=== PATIENT | female | born 1960 | race Caucasian/White ===

== ENCOUNTER 2025-09-01 09:59 | Outpatient (OUT) | payer OTHER, SELFPAY ==
--- NOTE | 2025-09-01 10:02 | MM_ITS ---
Patient Name: NANCY LOZOYA MR#: [id number] : 1960 Exam Date: 09/01/2025 Ordering Doctor: JOE MORALES RADIOLOGY REPORT PROCEDURE: MM TOMOSYNTHESIS SCREENING BI COMPARISON: MAMMO ROBB SCREEN, 09/02/2024. MM TOMOSYNTHESIS SCREENING BI, 09/18/2023. MAMMO ROBB SCREEN, 09/16/2022. MAMMO ROBB SCREEN, 09/10/2021. INDICATIONS: Screening Calculator Name NCI Breast Cancer Risk Assessment Tool 5 Year Breast Cancer Risk 2.20% Lifetime Breast Cancer Risk 8.90% Personal Breast Cancer No Personal Ovarian Cancer No Treatments None Family Cancers None LOCATION: [facility] BREAST COMPOSITION: There are scattered areas of fibroglandular density. FINDINGS: DIAGNOSTIC CATEGORY 1--NEGATIVE. RIGHT BREAST: No significant suspicious finding. LEFT BREAST: No significant suspicious finding. RECOMMENDATIONS: ROUTINE MAMMOGRAM AND CLINICAL EVALUATION IN 12 MONTHS. Dictated by: Primo Duong DO on 09/04/2025 at 09:22 Approved by: Primo Duong DO on 09/04/2025 at 09:23
--- OUTSIDE RECORDS SUMMARY | 2025-09-01 10:02 | XMS_ITS | Clinical Summary ---
Author Organization [facility] Address [facility] [id number] [address] [place] [address] Care Team Providers Care Rn Gyn Name Role Phone Maricarmen Urban Primary Care Provid er Allergies Active AllergyReactionsCriticalityNoted DateCommentsSulfa (Sulfonamide Antibiotics)11/26/2018 Medications MedicationSigDispense QuantityRefillsLast FilledStart DateEnd DateStatus erythromycin (ILOTYCIN) ophthalmic ointment Active Active Problems ProblemNoted DateDiagnosed DateSOB (shortness of breath)12/02/2018Chest pressure 12/02/2018Abnormal stress test12/02/2018 Family History Medical HistoryRelationNameCommentsStrokeFatherRelationNameStatusCommentsFather Social History Tobacco UseTypesPacks/DayYears UsedDateSmoking Tobacco: NeverSmokeless Tobacco: NeverAlcohol UseStandard Drinks/WeekCommentsYes0 (1 standard drink = 0.6 oz pure alcohol)ChildcareAnswerDate AxpkvvwoAzumnhtwlGrddzcg23/13/2019EmploymentAnswer Date BstwfggcOelrwmtopbDkasqql05/13/2019Purpose - LifeAnswerDate RecordedPurpose and direction in eoibDcyaula52/11/2021CommentsUnknownSex and Gender InformationValueDate RecordedSex Assigned at BirthNot on fileLegal SexFemale 08/11/2018 12:14 PM EDTGender IdentityNot on fileSexual OrientationNot on file Last Filed Vital Signs Vital SignReadingTime TakenCommentsBlood Ppewimpd908/60012/02/2018 2:35 PM EST Wnzfk7422/ 2:35 PM ESTTemperature--Respiratory Rate--Oxygen Nkdvhrrjrg31% 12/02/2018 2:35 PM ESTInhaled Oxygen Concentration--Gyarmx10.1 kg (128 lb) 12/02/2018 2:35 PM PLMVtewfr263.6 cm (5' 6 )12/02/2018 2:35 PM ESTBody Mass Index20.66012/02/2018 2:35 PM EST Plan of Treatment Health MaintenanceDue DateLast DoneCommentsDepression Hycpbbacg40/24/1973Tobacco Thpwsfhvi89/24/1973Adult BMI Aykbexzmd12/24/1979DTaP,Tdap and Td Vaccines (1 - Tdap)01/03/1980Pap Smear1982Zoster (Shingles) Vaccine (1 of 2)2011 Influenza Uqgdfuo2606/12/2025RSV ( or age 60+ yrs) (1 - 1-dose 75+ series) 01/03/2036 Medical Devices Not on file Insurance * Guarantor: Elly Lozoya TypeRelation to PatientDate of BirthPhone Billing AddressPersonal/UzninrRdwq1960 [address] [phone] Care Teams Team MemberRelationshipSpecialtyStart DateEnd Date Maricarmen Urban APRN-[place] [address] [phone] PCP - Jilreti90/31/18
--- OUTSIDE RECORDS SUMMARY | 2025-09-01 10:02 | XMS_ITS | Clinical Summary ---
Author Organization [facility] Address [address] [place] [address] Phone Care Team Providers Care Stenocaptioner Name Role Phone Raymond Becker DO Primary Care Provider Kayli Braga APRN-ARTIFICIAL FOLIAGE ARRANGER Unavailable Unavailable Allergies Active AllergyReactionsCriticalityNoted DateCommentsSulfa (Sulfonamide Antibiotics)Kaqvkqf9706/10/2023 Medications MedicationSigDispense QuantityRefillsLast FilledStart DateEnd DateStatus CALCIUM ORAL TABSActive docosahexaenoic acid/epa (FISH OIL ORAL) CAPSActive DAILY MULTI-VITAMIN ORAL TABSActive Lactobacillus acidophilus (PROBIOTIC ORAL) CAPSActive NON FORMULARY Vitamin D CAPSActive alprazolam (XANAX ORAL) if needed. TABSActive MAGNESIUM GLYCINATE ORAL Take 1 tablet by mouth once daily.Active dilTIAZem (Cardizem) 30 mg immediate release tablet Indications:PalpitationsTake one tablet twice a day as needed for palpitations lasting 10 minutes or longer 120 tablet ctive Active Problems ProblemNoted DateDiagnosed ChwmYqqiaxf98/30/2023asping for ukzfwl7806/10/2023 Dhatxkrb71/30/2023Moderate obstructive sleep apnea06/10/2023alpitations 06/10/2023SVT (paroxysmal supraventricular tachycardia)06/10/2023 Immunizations ImmunizationAdministration DatesNext DueFlu vaccine, quadrivalent, recombinant, preservative free, adult (FLUBLOK)08/15/2022,08/10/2021,06/28/2020Influenza, injectable, bnnokywodyzs21/31/2019,08/19/2018Influenza, seasonal, injectable 09/18/2015Zoster vaccine, recombinant, adult (SHINGRIX)07/28/2020 Family History Medical HistoryRelationNameCommentsHeart failureFatherLupusMotherOsteoporosis MotherBreast cancerSisterHypertensionSisterRelationNameStatusCommentsFather MotherSister Social History Tobacco UseTypesPacks/DayYears UsedDateSmoking Tobacco: NeverSmokeless Tobacco: Never Tobacco Cessation:Counseling Given: No Alcohol UseStandard Drinks/WeekCommentsNot Currently0 (1 standard drink = 0.6 oz pure alcohol)CommentsUnknownSex and Gender InformationValueDate Recorded Sex Assigned at BirthNot on fileLegal MwsVismrf73/25/2022 4:27 PM ESTGender IdentityNot on fileSexual OrientationNot on file Last Filed Vital Signs Vital SignReadingTime TakenCommentsBlood Fdmivznf391/7010 10:06 AM EDT Zazob0198 10:06 AM WYLPxedtghufsm83.5 ??C (97.7 ??F)01/12/2023 12:26 PM EDTRespiratory Rate--Oxygen Saturation--Inhaled Oxygen Concentration--Iayhvw54.1 kg (128 lb)08/07/2023 10:06 AM HNFHkitgo481.1 cm (5' 5 )08/07/2023 10:06 AM EDT Body Mass Index21.310 10:06 AM EDT Plan of Treatment Health MaintenanceDue DateLast DoneCommentsCT Lkylwjgzuvli1961Colonoscopy 1961FIT1961HIV Ltzedvvyb1961Lipid Panel1Sigmoidoscopy 1960Yearly Adult Jfkpvacc1960MMR Vaccines (1 of 1 - Standard series) 2Diabetes Movrlqwlt53/24/1979Hepatitis C Ezicwkdwv07/24/1979 Pneumococcal Vaccine (1 of 2 - PCV)01/03/1980Cervical Cancer Wgomayvmh78/24/1982 HPV/Mjgpix2301/02/1982Pap Smear1982DTaP/Tdap/Td Vaccines (1 - Tdap) 1983RSV High Risk: (Elderly (60+) or Population) (1 - Risk 50-74 years 1-dose series)2011Zoster Vaccines (2 of 2) Plgynmoiw09/06/806664/03/2022, 09/10/2021, 09/05/2020Influenza Vaccine (#1) 511/01/2022, 08/10/2021, 06/28/2020, Additional history existsCOVID-19 Vaccine ( season)/, 2021olorectal Cancer Ojbkvhelt78/25/2028FIT-DNA (Cologuard)8006/05/2025, 08/28/2020Bone Density KwkpNckgvfproppz41/30/2021HIB VaccinesAged OutNo longer eligible based on patient's age to complete this topicHPV VaccinesAged OutNo longer eligible based on patient's age to complete this topicHepatitis A VaccinesAged OutNo longer eligible based on patient's age to complete this topicHepatitis B VaccinesAged OutNo longer eligible based on patient's age to complete this topic IPV VaccinesAged OutNo longer eligible based on patient's age to complete this topicMeningococcal VaccineAged OutNo longer eligible based on patient's age to complete this topicRotavirus VaccinesAged OutNo longer eligible based on patient's age to complete this topic Procedures Procedure NamePriorityDate/TimeAssociated DiagnosisCommentsLAB COLOGUARD?? COLON CANCER UKEJCVSekrovw23/25/2025 8:24 AM EDT Screening for colorectal cancer from Last 3 Months Results * Cologuard?? colon cancer screening (06/05/2025 8:24 AM EDT)ComponentValueRef RangeTest MethodAnalysis TimePerformed AtPathologist SignatureNONINV COLON CA DNA+OCC BLD SCRN STL JVWoxxxaslGygkqxmk59/29/2025 3:42 PM EDTEXSun Animatics (CLIA #:[id number])Comment: The Cologuard (TM) test was performed on this specimen. NEGATIVE TEST RESULT. A negative Cologuard result indicates a low likelihood that a colorectal cancer (CRC) or advanced adenoma (adenomatous polyps with more advanced pre-malignant features) is present. The chance that a person with a negative Cologuard test has a colorectal cancer is less than 1 in 1500 (negative predictive value >99.9%) or has an advanced adenoma is less than 5.3% (negative predictive value 94.7%). These data are based on a prospective cross-sectional study of 10,000 individuals at average risk for colorectal cancer who were screened with both Cologuard and colonoscopy. (Alexandra Sue et al, N Engl J Med 2014;370(14):1703-0979) The normal value (reference range) for this assay is negative. COLOGUARD RE-SCREENING RECOMMENDATION: Periodic colorectal cancer screening is an important part ofpreventive healthcare for asymptomatic individuals at average risk for colorectal cancer. Followinga negative Cologuard result, the [place] [employer] and U.S. Multi-Society Task Force screening guidelines recommend a Cologuard re-screening interval of 3 years. References: [place] [employer] Guideline for Colorectal Cancer Screening: https://www.cancer.or g/cancer/gcrgb-pfdtpy-ibauiq/pisfwtvnr-mwrrxqung-hwzasau/acs-recommendations.htm sascha.; Jose DUBON, Vince MOYER, Pito CardonaK, Colorectal Cancer Screening: Recommendations for Physicians and Patients from the U.S. Multi-Society Task Force on Colorectal Cancer Screening , Am J Gastroenterology 2017; 112:6681-3310. TEST DESCRIPTION: Composite algorithmic analysis of stool DNA-biomarkers with hemoglobin immunoassay. ?? Quantitative values of individual biomarkers are not reportable and are not associated with individual biomarker result reference ranges. Cologuard is intended for colorectal cancer screening ofadults of either sex, 45 years or older, who are at average-risk for colorectal cancer (CRC). Cologuard has been approved for use by the U.S. FDA. The performance of Cologuard was established in a cross sectional study of average-risk adults aged 50-84. Cologuard performance in patients ages 45 to 49 years was estimated by sub-group analysis of near-age groups. Colonoscopies performed for a positive result may find as the most clinically significant lesion: colorectal cancer [4.0%], advanced adenoma (including sessile serrated polyps greater than or equal to 1cm diameter) [20%] or non- advanced adenoma [31%]; or no colorectal neoplasia [45%]. These estimates are derived from a prospective cross-sectional screening study of 10,000 individuals at average risk for colorectal cancer who were screened with both Cologuard and colonoscopy. (Alexandra Molina al, N Engl J Med 2014;370(14):3101-5508.) Cologuard may produce a false negative or false positive result (no colorectal cancer or precancerous polyp present at colonoscopy follow up). A negative Cologuard test result does not guarantee the absence of CRC or advanced adenoma (pre-cancer). The current Cologuard screening interval is every 3 years. ([place] [employer] and U.S. Multi-Society Task Force). Cologuard performance data in a 10,000 patient pivotal study using colonoscopy as the reference method can be accessed at the following location: www.[facility].MedAdherence/results. Additional description of the Cologuard test process, warnings and precautions can be found at www.cologuard.com. Specimen (Source)Anatomical Location / LateralityCollection Method / Volume Collection TimeReceived TimeStool specimen (specimen)Specimen from rectum / Gkfjtcd0406/05/2025 8:24 AM EDT06/06/2025 2:09 PM EDT Narrative Authorizing ProviderResult TypeResult StatusRobert Primo Becker [facility] ORDERABLESFinal ResultPerforming OrganizationAddress City/State/ZIP CodePhone Number [employer] (CLIA #:[id number]) [place] [address], from Last 3 Months Insurance Care Teams Team MemberRelationshipSpecialtyStart DateEnd Date Raymond Becker DO PCP - General12/22/19 Kayli Braga, MULTIMEDIA TECHNICIAN-ARTIFICIAL FOLIAGE ARRANGER Nurse GrsfenzsdxkoVxutfqhisi09/3/23
--- OUTSIDE RECORDS SUMMARY | 2025-09-01 10:02 | XMS_ITS | Clinical Summary ---
Author Organization [facility] Address [address] [place] [address] Care Team Providers Care Waist Fitter Name Role Phone Karla Oneilnilda Merida DPM Unavailable [phone] MuluGlynn barry Zhane DO Unavailable [phone] Uvaldo Rodriguez DO Primary Care Provider [phone] Allergies Active AllergyReactionsCriticalityNoted DateCommentsSulfa AntibioticsAnaphylaxis High11/26/2018 Other Reaction(s): Hives, Hives Hives and throat closes Tokgun4809/09/2023 Other Reaction(s): hives Medications MedicationSigDispense QuantityRefillsLast FilledStart DateEnd DateStatus Probiotic Product (PROBIOTIC ADVANCED PO) ProbioticActive cholecalciferol (Vitamin D-3) 125 MCG (5000 UT) capsule Take 5,000 Units by mouth in the morning.08/25/2022ctive omega-3 (Fish Oil) 1000 MG capsule Take 1,000 mg by mouth 1 (one) time each day at the same time.Active Multiple Vitamin (MULTIVITAMIN ADULT PO) Take by mouth.Active albuterol HFA 90 mcg/act inhaler Indications:Shortness of breathINHALE 2 PUFFS BY MOUTH EVERY 4 TO 6 HOURS NEEDED 18 g ctive DIGESTIVE ENZYMES PO Take by mouthActive estradiol (Estrace) 0.1 MG/GM vaginal cream Indications:Atrophic vaginitisInsert 1 g into the vagina 3 (three) times a week for 30 days, THEN 1 g 2 (two) times a week. 42.5 g 204/21/ctive naltrexone (Depade) 50 MG tablet Indications:Alcohol use disorderTake 1 tablet (50 mg) by mouth Daily Can start off with 1/2 tablet daily if desired to reduce side effects 30 tablet Expired Active Problems ProblemNoted DateDiagnosed DateSpondylosis of lumbar spine08/07/2023sthma 07/28/20230037Wswontuh22/30/2023SVT (paroxysmal supraventricular tachycardia) 06/10/2023Wellness ymyhpxqcrdz18/29/2023 Assessment & Plan (06/09/2023 9:15 AM EDT): Check DE XA. Will need a pap. Followed with Dr. Thomas in the past. Encouraged to schedule. Reviewed colonoscopy in May. Uneaycl8904/16/2023OSA (obstructive sleep apnea)04/16/2023 Assessment & Plan (06/09/2023 9:03 AM EDT): Trial with sleep apnea machine. Continue following with Dr. José. Assessment & Plan (04/16/2023 10:05 AM EDT): Waiting to get machine for CARLENE. Vitamin D /30/2022ge-related osteoporosis without current pathological awkdapuc84/21/2022 Overview (06/09/2023): DEXA osteoporosis Offered bisphosphonate therapy 2019 . No FHx fracture Menopause 51y/o tried ERT/PG patch and had bleeding- underwent work up - negative No secondary etiologies Lopez rods lumbar Referred to [facility] 2021 Assessment & Plan (06/09/2023 9:09 AM EDT): DEXA osteoporosis Offered bisphosphonate therapy 2019 . No FHx fracture Menopause 51y/o tried ERT/PG patch and had bleeding- underwent work up - negative No secondary etiologies Lopez rods lumbar Referred to [facility] 2021. Reports that she is no longer following with Dr. Hall and decided not to complete hormones. Bilateral nanmyzly39/25/6278Ajhpsivovwbpfr89/29/2020 Assessment & Plan (06/16/2025 1:54 PM EDT): Reordered annual labs for chronic underlying medical conditions including hyperlipidemia and postmenopausal state and some hormone labs for patient as she is considering adding testosterone back to [facility] compounded HRT, I am amenable to this as previously she had the testosterone pellets from previous HRT provider and those should be well out of system at this point as those were reportedly placed 1 year ago. I advised her to [facility] to discuss what they might need from her to add that in as I will likely need to sign another order when that time comes Orders: Lipid panel; Future CBC and differential; Future Comprehensive metabolic panel; Future Testosterone, free, total; Future Assessment & Plan (06/09/2023 9:18 AM EDT): CAC of 0 LDL of 160. Encouraged healthy lifestyle and diet. Resolved Problems ProblemNoted DateDiagnosed DateResolved DateNeed for viral immunization sthmatic bronchitis with acute ynteefnvdcan10/18/2023 09/11/2024 Overview (07/29/2023): started 02/2023- smoke exposure [place] 06/2023 - [facility] viral bronchitis - dexamethasone x1 Hubyqwnqifdu22Gasping for pbgurq59ecurrent icgflixii04 Assessment & Plan (06/09/2023 9:17 AM EDT): Stop using OTC natural oils and try AYR nasal gel instead. She requests ENT evaluation as well. Will place referral to ENT for evaluation of this and and abnormal sensations she is having in her throat. Some concern for GERD. Would appreciate Shortness of lcirsm52/10/2023 Assessment & Plan (06/09/2023 9:09 AM EDT): Check PFTS and echo. Improved with inhaled steroids. Sleep apneaHormone replacement therapy (HRT)04/16/2023 04/16/2023ost viral RAD (reactive airway disease)/SVT (supraventricular tachycardia) Assessment & Plan (06/09/2023 9:05 AM EDT): Complete echo recommended by Dr. Francis. She requests that we order this test locally. Assessment & Plan (04/16/2023 10:04 AM EDT): Sees Dr. Francis. She has not been taking the beta blockers she recommended. Fluttering heartostmenopausal bone loss Lumbosacral spondylosis without aymtwmqmeg03 Encounters DateTypeDepartmentCare UewnLgfyzkkvbjo08/13/2025Results Follow-Up [facility] [address], [place] [address] [place] [phone] Uvaldo Rodriguez DO CBC and differential, Comprehensive metabolic panel, Lipid panel, Testosterone, free, total07/21/2025 9:20 AM EDTOffice Visit [facility] [address], [facility] [place] [phone] Uvaldo Rodriguez DO Annual wellness visit (Primary Dx); Vaccine counseling; Alcohol use disorder; DDD (degenerative disc disease), ytcvsobm94/10/2025amboo flowsheet [facility] [address], [address] [place] [address] Uvaldo Rodriguez DO 07/11/2025bstract [facility] [address], [place] [address] Uvaldo Rodriguez DO 07/10/2025bstract [facility] [address], [facility] [place] [address] Uvaldo Rodriguez DO 06/16/2025 8:40 AM EDTProcedure Visit [facility] [address], [address] [place] [address] Uvaldo Rodriguez DO Segmental and somatic dysfunction of abdomen and other regions (Primary Dx); Postmenopausal; Hyperlipidemia, unspecified hyperlipidemia typefrom Last 3 Months Immunizations ImmunizationAdministration DatesNext DueInfluenza Nasal, Jwxnnuhtxlh39/04/2022 Influenza, Tuozngrlbpx38/17/2020Influenza, injectable, czzaosbnzaqi61/31/2019, 08/19/2018,09/12/2014Influenza, injectable, quadrivalent, preservative free 08/21/2023,08/11/2019,08/19/2018Influenza, recombinant, quadrivalent, injectable, preservative free08/15/2022,08/10/2021,06/28/2020Influenza, seasonal, gavxphxxch60/08/2015Zoster, Mmphtgscfgf14/17/2020 Family History Medical HistoryRelationNameCommentsNo Known ProblemsDaughterAlcohol abuseFather JohnArthritisFatherJohnHeart diseaseFatherJohnHyperlipidemiaFatherJohnMental illnessFatherJohnOsteoarthritisFatherJohnAlcohol abuseMotherNancyArthritisMother NancyCOPDMotherNancyEmphysemaMotherNancyLupusMotherNancyMental illnessMother NancyOsteoarthritisMotherNancyOsteoporosisMotherNancyUterine cancerPaternal GrandmotherHeart diseaseSister 1JodyHyperlipidemiaSister 1JodyHypothyroidism Sister 1JodyThyroid diseaseSister 1JodyBreast cancerSister 2BarbCancerSister 2 BarbHeart diseaseSister 2BarbHeart diseaseSister 3Older 3 yrsHyperlipidemia Sister 3Older 3 yrsNo Known ProblemsSonMelanomaNeg HxRelationNameStatusComments DaughterAlive1 daughterFatherJohnDeceasedMotherNancyDeceasedPaternal Grandmother Sister 1JodySister 2BarbSister 3Older 3 yrsSonAlive1 son Social History Tobacco UseTypesPacks/DayYears UsedDateSmoking Tobacco: NeverSmokeless Tobacco: Never Tobacco Cessation:Counseling Given: Not Answered Alcohol UseStandard Drinks/WeekCommentsNot Currently3 (1 standard drink = 0.6 oz pure alcohol)caffeine-1 to 2 cups per stsP4931 Health LiteracyAnswerDate RecordedHow often do you need to have someone help you when you read instructions, pamphlets, or other written material from your doctor or pharmacy? Never10/07/2024Social Connection and Isolation PanelAnswerDate RecordedIn a typical week, how many times do you talk on the phone with family, friends, or neighbors?Three times a week10/07/2024How often do you get together with friends or relatives?Once a week10/07/2024How often do you attend nondenominational or pentecostalism services?More than 4 times per year10/07/2024o you belong to any clubs or organizations such as nondenominational groups, unions, fraDiscount Ramps or athletic groups, or school groups?No10/07/2024How often do you attend meetings of the clubs or organizations you belong to?1 to 4 times per year10/07/2024re you , , , , never , or living with a partner? 10/07/2024UDIT-CAnswerDate RecordedQ1: How often do you have a drink containing alcohol?Never06/16/2025Q2: How many drinks containing alcohol do you have on a typical day when you are drinking?Patient does not drink06/16/2025Q3: How often do you have six or more drinks on one occasion?Never06/16/2025Overall Financial Resource Strain (CARDIA)AnswerDate RecordedHow hard is it for you to pay for the very basics like food, housing, medical care, and heating?Not hard at all 10/07/2024HQ-2AnswerDate RecordedPatient Health Questionnaire-2 Score0 06/16/2025[place] [facility] [facility] - Occupational Stress QuestionnaireAnswerDate RecordedDo you feel stress - tense, restless, nervous, or anxious, or unable to sleep at night because yourmind is troubled all the time - these days?Not at all10/07/2024Exercise Vital SignAnswerDate RecordedOn average, how many days per week do you engage in moderate to strenuous exercise (like a brisk walk)?2 days12/27/2024On average, how many minutes do you engage in exercise at this level?20 min10/07/2024Hunger Vital SignAnswerDate Recorded Within the past 12 months, you worried that your food would run out before you got the money to buymore.Never true10/07/2024Within the past 12 months, the food you bought just didn't last and you didn't have money to get more.Never true 10/07/2024RAPARE - TransportationAnswerDate RecordedIn the past 12 months, has lack of transportation kept you from medical appointments or from getting medications?No10/07/2024In the past 12 months, has lack of transportation kept you from meetings, work, or from getting things needed for daily living?No 10/07/2024Housing Stability Vital SignAnswerDate RecordedIn the last 12 months, was there a time when you were not able to pay the mortgage or rent on time?No 10/07/2024In the past 12 months, how many times have you moved where you were living?t any time in the past 12 months, were you homeless or living in a usp (including now)?No10/07/2024CommentsNoSex and Gender InformationValueDate RecordedSex Assigned at BirthNot on fileLegal SexFemale 12/24/2022 6:54 PM EDTGender IdentityNot on fileSexual OrientationNot on file OccupationIndustryJob Start DateJob 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 DatecosmatologistNot on fileNot on file Not on file Last Filed Vital Signs Vital SignReadingTime TakenCommentsBlood Aeqclyvd042/801 9:33 AM EDT Czcro055007/21/2025 9:33 AM QTZFsxdzbwvsoh90.8 ??C (98.3 ??F)07/21/2025 9:33 AM EDTRespiratory Spgc8172 9:33 AM EDTOxygen Wvjymsgmmo76%07/21/2025 9:33 AM EDTInhaled Oxygen Concentration--Kkpwyu63.7 kg (136 lb)07/21/2025 9:33 AM EDT Vkrvbc693.1 cm (5' 5 )07/21/2025 9:33 AM EDTBody Mass Index22.6310/07/2025 9:33 AM EDT Plan of Treatment DateTypeDepartmentCare Team (Latest Contact Info)Xiaowuccupx98/08/2026 11:15 AM EDTOffice Visit [facility] [address] [address] Martha Randle DO [address] [address] Health MaintenanceDue DateLast DoneCommentsCT Bpcrgpvlothk1961FIT 1961FOBT1961 2955Evkwhnacdopyz1961neumococcal Vaccine: Pediatrics (0 to 5 Years) and At-Risk Patients (6 to 64 Years) (1 of 2 - PCV)01/03/1980Pap Smear503/, 05/15/2020COVID-19 Vaccine (3 - 2024- season) 504/, 2021Influenza Vaccine (#1)/07/2023, 08/15/2022, 08/10/2021, Additional history shqxfmPoaqunctg26/22/202511/, 09/18/2023, 09/16/2022, Additional history existsFIT-DNA/, 08/28/2020, 08/28/2020Cervical Cancer Xrtcstrwt92/05/2030HPV/Xitmmf7203/16/2030 2458Mfgwkghugcn57/11/203308/3Colorectal Cancer Rxadplldv31/11/2033 Procedures Procedure NamePriorityDate/TimeAssociated DiagnosisCommentsTESTOSTERONE FREE AND VEFREQjiahpo06/11/2025 2:30 PM EDT Postmenopausal Hyperlipidemia, unspecified hyperlipidemia type COMPREHENSIVE METABOLIC XSAFAXfuohrh67/11/2025 2:30 PM EDT Postmenopausal Hyperlipidemia, unspecified hyperlipidemia type CBC (INCLUDES DIFF/PLT)Zmgfpgo6107/22/2025 2:30 PM EDT Postmenopausal Hyperlipidemia, unspecified hyperlipidemia type LIPID ZLRPBBwmkcgx13/11/2025 2:30 PM EDT Postmenopausal Hyperlipidemia, unspecified hyperlipidemia type TESTOSTERONE FREE AND TZJUKZyvyzin75/10/2025 8:53 AM EDT LIPID LAAYOBwkkows91/10/2025 8:53 AM EDT COMPREHENSIVE METABOLIC KUYXIPhrmasc32/10/2025 8:53 AM EDT CBC (INCLUDES DIFF/PLT)Iuhqqtk2607/21/2025 8:53 AM EDT C-REACTIVE WAKETBVVqentwr71/10/2025 8:52 AM EDT DDD (degenerative disc disease), cervical Postmenopausal IGP, APT HPV,RFX 16/18,61Ewhyyox81/05/2025 12:00 AM EDT Screening for malignant neoplasm of cervix Encounter for screening for human papillomavirus (HPV) MAMMO 3D,BILATERAL SCREENING MAMMOGRAM WITH OMTMXFHoesonf15/22/2024 3:40 PM EST COLONOSCOPY ZWHZJTNQYIZevmchb45/11/2023 11:06 AM EDTTHINPREP TIS PAP AND HPV MRNA E6/E7 REFLEX HPV 16,18/45 (09501)Hkttjiw9312/31/2021 LAB COLOGUARD?? COLON CANCER EGOAFVHqdesyc54/17/2020 from Last 3 Months or Most Recently Relevant to Health Maintenance Results * CBC and differential (07/22/2025 2:30 PM EDT) Only the most recent of2 resultswithin the time period is included. Specimen (Source)Anatomical Location / LateralityCollection Method / Volume Collection TimeReceived TimeBloodVenous blood specimen / Unknown Narrative Authorizing ProviderResult TypeResult StatusDaniel Michael [facility] BLOOD ORDERABLES Final ResultPerforming OrganizationAddressCity/State/ZIP CodePhone Number [facility] * Testosterone, free, total (07/22/2025 2:30 PM EDT) Only the most recent of2 resultswithin the time period is included. Specimen (Source)Anatomical Location / LateralityCollection Method / Volume Collection TimeReceived TimeBloodVenous blood specimen / Unknown Narrative Authorizing ProviderResult TypeResult StatusDaniel Michael [facility] BLOOD ORDERABLES Final ResultPerforming OrganizationAddWilkes-Barre General Hospitalty/State/ZIP CodePhone Number [facility] * Lipid panel (07/22/2025 2:30 PM EDT) Only the most recent of2 resultswithin the time period is included. Specimen (Source)Anatomical Location / LateralityCollection Method / Volume Collection TimeReceived TimeBloodVenous blood specimen / Unknown Narrative Authorizing ProviderResult TypeResult StatusDaniel Michael DOLAB BLOOD ORDERABLES Final ResultPerforming OrganizationAddCurahealth Heritage [facility] CodePhone Number [facility] * Comprehensive metabolic panel (07/22/2025 2:30 PM EDT) Only the most recent of2 resultswithin the time period is included. Specimen (Source)Anatomical Location / LateralityCollection Method / Volume Collection TimeReceived TimeBloodVenous blood specimen / Unknown Narrative Authorizing ProviderResult TypeResult StatusDaniel Michael [facility] BLOOD ORDERABLES Final ResultPerforming OrganizationAddCurahealth Heritage [facility]/ZIP CodePhone Number [facility] * C-reactive protein (07/21/2025 8:52 AM EDT)ComponentValueRef RangeTest Method Analysis TimePerformed AtPathologist SignatureC-Reactive Protein Quant<10 - 10 mg/LLABCORPSpecimen (Source)Anatomical Location / LateralityCollection Method / VolumeCollection TimeReceived TimeBloodVenous blood specimen / Unknown 07/21/2025 8:52 AM EDT1 Narrative [facility] - 07/22/2025 6:07 AM EDT Performed at: 01 - Lab[address] ??[id number] [place]: Gerson Steel PhD, Phone: ??[phone] Authorizing ProviderResult TypeResult StatusDaniel Michael [facility] BLOOD ORDERABLES Final ResultPerforming OrganizationAddWilkes-Barre General Hospitalty/[facility]/ZIP CodePhone Number [facility] * IGP, APT HPV,RFX 16/18,45 (03/16/2025 12:00 AM EDT)ComponentValueRef RangeTest MethodAnalysis TimePerformed AtPathologist SignatureDiagnosis:CommentL[facility]P Comment: NEGATIVE FOR INTRAEPITHELIAL LESION OR MALIGNANCY. CELLULAR CHANGES ASSOCIATED WITH ATROPHY ARE PRESENT. Specimen Adequacy:CommentLABCORPComment: Satisfactory for evaluation. ??Endocervical component may not be distinguished in cases of atrophy. Clinician Provided ICD10:CommentLABCORPComment: Z12.4 Z11.51 Performed By:CommentLABCORPComment:Maria D Reina, Wire Insulator ([facility])Cyto Comments.[facility]ABCORPNote:CommentLABCORPComment: The Pap smear is a screening test designed to aid in the detection of premalignant and malignant conditions of the uterine cervix. ??It is not a diagnostic procedure and should not be used as the sole means of detecting cervical cancer. ??Both false-positive and false-negative reports do occur. Test Methodology:CommentLABCORPComment: This liquid based ThinPrep(R) pap test was screened with the use of an image guided system. HPV AptimaNegativeNegativeLABCORPComment: This nucleic acid amplification test detects fourteen high-risk HPV types (16,18,31,33,35,39,45,51,52,56,58,59,66,68) without differentiation. Specimen (Source)Anatomical Location / LateralityCollection Method / Volume Collection TimeReceived TimeVaginal Fluid/03/2025 Narrative [facility] - 03/20/2025 4:35 PM EDT Performed at: 01 - [facility] [address] [place], [place] ??[id number] [place]: Drake Hickman MD, Phone: ??[phone] Performed at: ??02 - Lab[address] ??[id number] [place]: Zo Zhang MD, Phone: ??[phone] Performed at: ??03 - Lab[address] ??[id number] [place]: Zo Zhang MD, Phone: ??[phone] Specimen Comment: No. of containers..01 ThinPrep Vial Authorizing ProviderResult TypeResult Chloe Randle DOLAB BLOOD ORDERABLESFinal ResultPerforming OrganizationAddressCity/State/ZIP CodePhone Number [facility] * MAMMO 3D,BILATERAL SCREENING MAMMOGRAM WITH TOMOSY (09/02/2024 3:40 PM EST) Anatomical RegionLateralityModalityRadiographic Imaging Narrative Authorizing ProviderResult TypeResult Chloe Randle DOIMG XR PROCEDURESFinal Result * COLONOSCOPY DIAGNOSTIC (05/22/2023 11:06 AM EDT)Anatomical RegionLaterality ModalityRadiographic Imaging Narrative Authorizing ProviderResult TypeResult StatusUnknown Practice AIMG XR PROCEDURES Final Result * THINPREP TIS PAP AND HPV MRNA E6/E7 REFLEX HPV 16,18/45 (49359) (12/31/2021) ComponentValueRef RangeTest MethodAnalysis TimePerformed AtPathologist SignatureCLINICAL INFORMATION:None givenNOMS LEGACY EXTERNAL LABLMP:None given [facility] LABPREV. PAP:None givenN[facility]S LEGACY EXTERNAL LABPREV. BX: None givenN[facility]S LEGAC[facility] EXTERNAL LABSOURCE:Cervix, EndocervixNOMS LEGACY EXTERNAL LABSTATEMENT OF ADEQUACY:SEE COMMENTNOMS LEGACY EXTERNAL LABComment: Satisfactory for evaluation. Endocervical/transformation zone component present. INTERPRETATION/RESULT:Negative for intraepithelial lesion or malignancy.[facility] LABCOMMENT:This Pap test has been evaluated with computer assisted technology.[facility] LABCYTOTECHNOLOGIST:SEE COMMENTNOMS LEGACY EXTERNAL LABComment: DMK, CT(ASCP) CT screening location: [place] [address]. REVIEW SITE MANAGER:SEE COMMENTNOMS LEGACY EXTERNAL LABComment: BGG, SCT(ASCP) CT screening location: [place] [address]. COMMENTSEE COMMENTNOMS LEGACY EXTERNAL LABComment: EXPLANATORY NOTE: The Pap is a screening test for cervical cancer. It is not a diagnostic test and is subject to false negative and false positive results. It is most reliable when a satisfactory sample, regularly obtained, is submitted with relevant clinical findings and history, and when the Pap result is evaluated along with historic and current clinical information. HPV MRNA E6/E7Not DetectedNot DetectedNOMS LEGACY EXTERNAL LABComment: Methodology: Patient Intake Coordinator-Mediated Amplification This assay detects E6/E7 viral messenger RNA (mRNA) from 14 high-risk HPV types (16,18,31,33,35,39,45,51,52,56,58,59,66,68). The analytical performance characteristics of this assay have been determined by [facility]. The modifications have not been cleared or approved by the FDA. This assay has been validated pursuant to the CLIA regulations and is used for clinical purposes. For additional information, please refer to http://education.TranscribeMe/faq/GJQ725j4 (This link if provided for information/ educational purposes only.) NO COLLECTION DATE RECEIVED. WE HAVE USED THE DATE THE SPECIMEN WAS RECEIVED BY THIS LABORATORY THE COLLECTION DATE. IF THIS IS INCORRECT, PLEASE CONTACT CLIENT SERVICES. PHONE NUMBER: [phone] Specimen (Source)Anatomical Location / LateralityCollection Method / Volume Collection TimeReceived Time12/31/2021 Narrative Authorizing ProviderResult TypeResult StatusMartha Randle DOMAXI LABSFinal ResultPerforming OrganizationAddressCity/State/ZIP CodePhone Number [facility] from Last 3 Months or Most Recently Relevant to [place] [address] Care Teams Team MemberRelationshipSpecialtyStart DateEnd Date Uvaldo Rodriguez DO [address] [place] [address] PCP - GeneralFamily Medicine06/13/25 Vadim Oneil DPM [address] [facility] [address] [place] [address] Referring PhysicianPodiatry06/10/24 Glynn Lyn DO [address] [place] [address] Referring PhysicianOtolaryngology06/10/24
--- OUTSIDE RECORDS SUMMARY | 2025-09-01 10:02 | XMS_ITS | Clinical Summary ---
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 Name Role Phone Raymond Becker DO Primary Care Provider Marianna José EMU FARM WORKER Unavailable [phone] Allergies Active AllergyReactionsCriticalityNoted DateCommentsSulfa (Sulfonamide Antibiotics)Eikhjxaskaz93/15/2019 Hives and throat closes Medications MedicationSigDispense QuantityRefillsLast FilledStart DateEnd DateStatus calcium carbonate/vitamin D3 (CALCIUM 500 + D ORAL) Take by mouth.Active TURMERIC ORAL Take by mouth.Active docosahexaenoic acid/epa (FISH OIL ORAL) Take by mouth.Active FA/mv,Ca,iron,min/lycopene/lut (MULTIVITAL ORAL) Take by mouth.Active Cholecalciferol, Vitamin D3, 125 mcg (5,000 unit) cap Indications:Osteoporosis, unspecified osteoporosis type, unspecified pathological fracture presenceTake 1 capsule by mouth once daily. one po daily w K2 90 capsule ctive albuterol HFA (PROVENTIL HFA, VENTOLIN HFA) 90 mcg/actuation inhaler 07/27/2023ctive magnesium oxide (MAG-OX) 400 mg (241.3 mg magnesium) tablet Take 1 tablet by mouth every afternoon.05/14/2023ctive Active Problems ProblemNoted DateDiagnosed DateSpondylosis of lumbar spine Amotmj92Sleep apneaEncounter for screening for malignant neoplasm of wgdapv7908/25/2022ostmenopausal bone loss04/30/2020 menopause age 51Hormone replacement therapy (HRT)Anxiety Resolved Problems ProblemNoted DateDiagnosed DateResolved DateAttention deficit hyperactivity disorder (ADHD), predominantly inattentive type Sehgdekypw51 Overview (04/30/2020): T-score -1.9 spine and femoal neck with loss Immunizations ImmunizationAdministration DatesNext Dueinfluenza (IIV3) vaccine, trivalent (AFLURIA, FLULAVAL, FLUVIRIN, FLUZONE)09/18/2015influenza (IIV4) vaccine, age 6 mo - 64 yr, quadrivalent (AFLURIA, FLULAVAL, FLUZONE)08/10/2019influenza (IIV4) vaccine, quadrivalent (AFLURIA, FLULAVAL, FLUZONE)08/11/2019,08/19/2018influenza (LAIV) vaccine, nasal, unspecified abnrfxqwjow00/04/2022influenza (RIV4) vaccine, recombinant, quadrivalent, PF (FLUBLOK)08/15/2022,08/10/2021,06/28/2020 influenza vaccine, unspecified ojgmlrcnpnt10/17/2020zoster (RZV) vaccine, recombinant (SHINGRIX)07/28/2020 Family History Medical HistoryRelationCommentshealthyDaughterCHFFatherdied age 84Osteoporosis Motherdied age 84discoid lupusMotherThyroidSister 1Breast CancerSister 2stage 0 HypertensionSister 3ObesitySister 3healthySonRelationStatusCommentsDaughterAlive FatherDeceasedMaternal GrandfatherDeceasedMaternal GrandmotherDeceasedMother DeceasedPaternal GrandfatherDeceasedPaternal GrandmotherDeceasedSister 1Alive Sister 2AliveSister 3AliveSonAlive Social History Tobacco UseTypesPacks/DayYears UsedDateSmoking Tobacco: NeverSmokeless Tobacco: Never Tobacco Cessation:Counseling Given: Not Answered Alcohol UseStandard Drinks/WeekCommentsYes0 (1 standard drink = 0.6 oz pure alcohol)off and on has stopped has used for anxietyPHQ-2AnswerDate RecordedPHQ-2 gcokw257rea Deprivation IndexAnswerDate RecordedNational Score (1-100), lower number is lower qpzq137608/07/2023State Score (1-10), lower number is lower bzpf7943Data from: https://www.neighborhoodatlas.medicine.[facility].edu/. Last address used for [address] 08/07/2023CommentsNoSex and Gender InformationValueDate RecordedSex Assigned at BirthNot on fileLegal Sex Yswujx4802/16/2020 3:59 PM EDTGender IdentityNot on fileSexual OrientationNot on fileOccupationIndustryJob Start DateJob End DatecosmetologyNot on fileNot on fileNot on file Last Filed Vital Signs Vital SignReadingTime TakenCommentsBlood Gstdcmql42/7408/07/2023 1:02 PM EDT Ubtzr278208/07/2023 1:02 PM UHCJbjqppkdzmm43.4 ??C (97.5 ??F)08/07/2023 1:02 PM EDTRespiratory Rate--Oxygen Saturation--Inhaled Oxygen Concentration--Iqbgcp63.1 kg (128 lb)08/07/2023 1:02 PM JUJZrstlj788.8 cm (5' 4.88 )08/07/2023 1:02 PM EDT Body Mass Index21.381 1:02 PM EDT Plan of Treatment Health MaintenanceDue DateLast DoneCommentsAnnual PCP Team Chronic Disease Visit 1979Depression Zyofdpgbx30/24/1979Hepatitis C Iofmmymij03/24/1979 DTaP,Tdap,Td Vaccine (1 - Tdap)01/03/1980CT Uhpbawuzopsr65/24/2006Diabetes Jxtbpixiz91/24/2006Fecal Occult Blood2006Lipid Ofrcjvehu31/24/2006 Abyvffcozdnva68/24/2006Pneumococcal Vaccine: 50+ (1 of 1 - PCV)2011 Piwqaqvpzbz30/20/RSV Vaccine (1 - Risk 60-74 years 1-dose series) 2021Mammogram Zbqmhwjpf91Cervical Cancer Screening Covid-19 Vaccine ( - season)504/, 2021Influenza Vaccine (#1)/01/2022, 08/15/2022, 08/10/2021, Additional history existsCologuard (FIT-DNA)/04/2022, 04/21/2022, 08/28/2020Colorectal Cancer Adtysznme09/07/2025Shingrix VaccineCompleted 07/28/2020, 04/30/2020, 04/30/2020HIV ScreeningDiscontinued Insurance Care Teams Team MemberRelationshipSpecialtyStart DateEnd Raymond Becker DO [address] [place] [address] PCP - GeneralInternal Medicine04/30/20 Marianna José CNP [address] [place] [address] [facility]06/12/23
== END 2025-09-01 10:00 | disposition home or self-care (01) ==
LOC: MAMMO 09:59
PROVIDERS: PCP Student in an Organized Health Care Education/Training Program; Visit Provider Student in an Organized Health Care Education/Training Program
DX: Z12.31 Encounter for screening mammogram for malignant neoplasm of breast (principal)
CPT/HCPCS: 77063; 77067